=== PATIENT | male | born 1995 | race African-American/Black ===

== ENCOUNTER → 2018-05-17 | Outpatient (REF) | payer OTHER ==
[2018-05-17 21:51] LABS: CHLAMYDIA DNA AMPLIFICATION NEGATIVE (NEGATIVE); GC DNA AMPLIFICATION NEGATIVE (NEGATIVE)
[2018-05-22 00:07] LABS: HSV TYPE I IgM AB <1:10 titer (<1:10); HSV TYPE II IgG SPECIFIC <0.91 index (0.00-0.90); HSV TYPE II IgM ABY <1:10 titer (<1:10)
== END ==
LOC: M SFHCLERA 19:11
DX: Z20.2 Contact with and (suspected) exposure to infections with a predominantly sexual mode of transmission (principal); Z11.3 Encounter for screening for infections with a predominantly sexual mode of transmission
CPT/HCPCS: 86695

== ENCOUNTER 2018-08-28 06:46 | Emergency (ER) | payer OTHER ==
[~2018-08-28] VITALS: Ht 180.3 cm; Wt 78.2 kg
[2018-08-28] MEDS ORDERED: AMPICILLIN SOD/SULBACTAM SOD 3 GM in D5W MINI-BAG PLUS 100 ML IV ONE (07:15)
[2018-08-28] MEDS ORDERED: NS 1,000 ML IV ONE (07:15)
[2018-08-28] MEDS ORDERED: KETOROLAC 30 MG/ML VIAL (J1885) IV ONE (07:15)
[2018-08-28 07:45] LABS: BASO # 0.1 10^3/uL (0.0-0.2); BASO % 0.4 % (0.0-1.0); EOS # 0.1 10^3/uL (0.0-0.50); EOS % 0.9 % (0.0-3.0); LYMPH # 1.8 10^3/uL (1.5-6.5); LYMPH % 15.5 % (24.0-44.0); MEAN CORPUSCULAR HGB CONC 34.8 g/dl (32.0-36.5); MEAN CORPUSCULAR VOLUME 86.1 fl (80.0-96.0); MONO # 0.9 10^3/uL (0.0-0.8); MONO % 7.7 % (0.0-5.0); NEUTROPHILS # 8.8 10^3/uL (1.8-7.7); NEUTROPHILS % 75.1 % (36.0-66.0); PLATELET COUNT, AUTOMATED 251 10^3/uL (150-450); RED BLOOD COUNT 5.34 10^6/uL (4.30-6.10); WHITE BLOOD COUNT 11.7 10^3/uL (4.0-10.0)
[2018-08-28 08:03] LABS: BLOOD UREA NITROGEN 16 MG/DL (7-18); C REACTIVE PROTEIN QUANTITATIV 1.94 MG/DL (0.00-0.30); CALCIUM LEVEL 8.8 MG/DL (8.5-10.1); CARBON DIOXIDE LEVEL 29 MEQ/L (21-32); CHLORIDE LEVEL 102 MEQ/L (98-107); CREATININE FOR GFR 1.12 MG/DL (0.70-1.30); GLOMERULAR FILTRATION RATE > 60.0 (>60); GLUCOSE, FASTING 93 MG/DL (70-100); POTASSIUM SERUM 4.1 MEQ/L (3.5-5.1); SODIUM LEVEL 137 MEQ/L (136-145)
[2018-08-28] MEDS ORDERED: ISOVUE-370 76% 100ML VIAL (Q9967) As Ordered ONE (08:08)
--- NOTE | 2018-08-28 09:06 | REP ---
SOFT-TISSUE NECK CT WITH IV CONTRAST: HISTORY: Pain and swelling in the right side of the neck. CT CONTRAST DOSE: 75 mL of intravenous Isovue 370. CT FINDINGS: Preliminary digital aircraft servicer radiographs are unremarkable. The parotid and submandibular glands are normal and symmetric. Thyroid lobes are homogeneous and normal in size. No vascular abnormality is seen. The visualized paranasal sinuses are clear. No intraorbital abnormality is observed. There is no evidence of tonsillar or peritonsillar abscess. There is shotty bilateral cervical lymphadenopathy. The largest lymph node on the right measures 12 X 14 x 17 mm. The largest lymph node on the left, also an anterior cervical lymph node measures 11 x 17 x 26 mm. There are multiple other smaller anterior and posterior lymph nodes. Two or three submental lymph nodes are seen to be somewhat hypertrophied. There is diffuse subcutaneous edema in the submental region bilaterally. Question cellulitis. No other abnormality. No bony abnormalities seen. The lung apices are clear. No glottic or subglottic airway lesion is appreciated. IMPRESSION: Diffuse cervical lymphadenopathy, mild in degree. Diffuse soft tissue swelling in the floor the mouth and anterior neck subcutaneous soft tissues. No abnormal fluid collection seen. Otherwise negative. Electronically Signed by Giorgio Diaz MD 08/28/2018 10:08 A
[2018-08-28] MEDS ORDERED: dexameTHASONE 20 MG/5 ML VIAL (J1100) IV ONE (10:45)
[2018-08-28] MEDS ORDERED: IBUP-1022 PO (11:05)
[2018-08-28] MEDS ORDERED: AUGM875T28 PO (11:05)
[2018-08-28 11:07] VITALS: BP 122/67
== END 2018-08-28 11:12 | disposition home or self-care (01) ==
LOC: M ED 06:46
DX: R59.0 Localized enlarged lymph nodes (principal); J02.9 Acute pharyngitis, unspecified; Z87.891 Personal history of nicotine dependence
CPT/HCPCS: 70491; 80048; 85025; 86140; 87880; 96361; 96365; 96375; 99284; J1100; J1885; Q9967

== ENCOUNTER → 2020-07-03 | Outpatient (CLI) | payer SELFPAY ==
[~2020-07-03] MED LIST: AUGM875T28 PO; IBUP-1022 PO
== END ==
LOC: M LABSMTC 13:56
PROVIDERS: ATTEND Pediatrics
DX: Z20.828 Contact with and (suspected) exposure to other viral communicable diseases (principal)

== ENCOUNTER 2020-08-03 07:23 | Inpatient (IN) | payer OTHER ==
[2020-08-03] VITALS (8 sets, daily range): BP systolic 112–136; BP diastolic 66–74
[2020-08-03] MEDS ORDERED: AMMONIA AROMATIC INHALANT STA (07:25)
[2020-08-03] MEDS ORDERED: NS 1,000 ML IV ONE (07:30)
[2020-08-03 08:08] LABS: BASO # 0.1 10^3/uL (0.0-0.2); BASO % 0.3 % (0.0-1.0); EOS % 0.1 % (0.0-3.0); HEMATOCRIT 51.4 % (42.0-52.0); HEMOGLOBIN 16.1 g/dl (13.5-17.5); LYMPH # 3.4 10^3/uL (1.5-5.0); LYMPH % 20.2 % (24.0-44.0); MEAN CORPUSCULAR HEMOGLOBIN 28.2 pg (27.0-33.0); MEAN CORPUSCULAR HGB CONC 31.3 g/dl (32.0-36.5); MONO # 0.7 10^3/uL (0.0-0.8); MONO % 3.9 % (0.0-5.0); NEUTROPHILS # 12.3 10^3/uL (1.5-8.5); NEUTROPHILS % 72.4 % (36.0-66.0); PLATELET COUNT, AUTOMATED 274 10^3/uL (150-450); RED BLOOD COUNT 5.71 10^6/uL (4.30-6.10); WHITE BLOOD COUNT 16.9 10^3/uL (4.0-10.0)
[2020-08-03] MEDS ORDERED: cefTRIAXone SOD 2 GM in D5W MINI-BAG PLUS 50 ML IV ONE (08:15)
--- NOTE | 2020-08-03 08:18 | REP ---
INDICATION: Altered Mental Status COMPARISON: None. TECHNIQUE: Portable AP view of the chest FINDINGS: Asymmetric left-sided airspace disease suggesting pneumonia and correlation is recommended. No effusion. Right hemithorax is clear. Mediastinum and cardiac silhouette are within normal limits for portable technique. IMPRESSION: Hazy right-sided opacity suggesting pneumonia. Correlation is required along with follow-up. <Electronically signed by Collin Davalos > 08/03/20 0849
[2020-08-03] MEDS ORDERED: ESCI20TA PO (08:22)
[2020-08-03] MEDS: ALBUTEROL 90 MCG/ACT 8GM HFA INHALER INH SCH ×3 (08:30→09:10)
[2020-08-03] MEDS ORDERED: methylPREDNISolone 125MG 2ML VIAL IV ONE (08:30)
[2020-08-03 08:50] LABS: AMPHETAMINES LEVEL URINE NEGATIVE (NEGATIVE); BARBITURATES URINE NEGATIVE (NEGATIVE); BENZODIAZEPINES URINE NEGATIVE (NEGATIVE); CANNABINOIDS URINE NEGATIVE (NEGATIVE); COCAINE METABOLITE URINE NEGATIVE (NEGATIVE); METHADONE URINE NEGATIVE (NEGATIVE); OPIATES URINE NEGATIVE (NEGATIVE); PHENCYCLIDINE URINE NEGATIVE (NEGATIVE)
--- NOTE | 2020-08-03 09:07 | REP ---
INDICATION: Altered Mental Status. COMPARISON: None. TECHNIQUE: Helical scanning is acquired. 5 mm axial images were reformatted. Coronal MPR images were generated. FINDINGS: Bone window settings demonstrate an intact bony calvarium. There is no evidence of skull fracture or incidental bony calvarial lesion. The visualized paranasal sinuses appear clear. No intraorbital abnormality is seen. On soft tissue window setting images; the lateral, third, and fourth ventricles are normal in size and position. Adams-white differentiation pattern is normal above and below the tentorium. There are is no evidence of intracranial hemorrhage. No mass, edema, infarction, or midline shift is seen. No extra-axial fluid collection is appreciated. IMPRESSION: Negative noncontrast head CT. <Electronically signed by Pierce Diaz > 08/03/20 0903
[2020-08-03 09:08] LABS: ACETAMINOPHEN LEVEL < 2.0 UG/ML (10.0-30.0); ALT/SGPT 46 U/L (12-78); BILIRUBIN,DIRECT < 0.1 MG/DL (0.0-0.2); BILIRUBIN,TOTAL 0.1 MG/DL (0.2-1.0); ETHYL ALCOHOL (ETHANOL) < 0.003 % (0.000-0.010); SALICYLATE LEVEL < 1.7 MG/DL (5.0-30.0); THYROID STIMULATING HORMONE 0.758 uIU/ML (0.358-3.740); TOTAL PROTEIN 7.9 GM/DL (6.4-8.2)
[2020-08-03 09:10] LABS: RSV AMPLIFICATION NEGATIVE (NEGATIVE)
[2020-08-03] MEDS ORDERED: ONDANSETRON 4MG/2ML VIAL IV ONE (09:15)
[2020-08-03] MEDS ORDERED: NS 1,930 ML in IV 1 EA IV ONE (09:15)
[2020-08-03 09:25] LABS: BLOOD UREA NITROGEN 32 MG/DL (7-18); CALCIUM LEVEL 8.7 MG/DL (8.5-10.1); CARBON DIOXIDE LEVEL 26 MEQ/L (21-32); CHLORIDE LEVEL 107 MEQ/L (98-107); CREATININE FOR GFR 2.17 MG/DL (0.70-1.30); GLOMERULAR FILTRATION RATE 47.3 (>60); GLUCOSE, FASTING 37 MG/DL (70-100); POTASSIUM SERUM 3.7 MEQ/L (3.5-5.1); SODIUM LEVEL 143 MEQ/L (136-145)
[2020-08-03] MEDS ORDERED: DEXTROSE 50% 50 ML SYRINGE IV STA (09:32)
[2020-08-03] MEDS ORDERED: DEXTROSE 50% 50 ML SYRINGE As Ordered ONE (09:33)
[2020-08-03 11:44] LABS: RSV AMPLIFICATION NEGATIVE (NEGATIVE)
--- NOTE | 2020-08-03 12:34 | HPE ---
HISTORY AND PHYSICAL DATE OF ADMISSION: 08/03/2020 PRIMARY CARE PROVIDER: [facility] CHIEF COMPLAINT: Acute respiratory failure secondary to presumed aspiration pneumonia. HISTORY OF PRESENT ILLNESS: Ibrahima Kirkpatrick is a 25 year old. He has no significant past medical history. He presented to the emergency room obtunded, hypothermic, hypoglycemic, and hypoxic. His said that she found him in a bathtub, called a friend of his to come over, and then they called the ambulance. Confidential discussions with his , Yeny Kirkpatrick ([phone]), she is concerned that this is related to a drug overdose. She said that when she found him unresponsive, he had been googling symptoms of "oxy side effects," and that the friend said that they had been taking a Percocet derivative (suspected synthetic opiate use). PAST MEDICAL HISTORY: The past medical history looks to be benign. He has a prescription for Celexa in the system. I am not sure if he is still taking that. ALLERGIES: None known. SOCIAL HISTORY: , has a child. 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 No smoking. REVIEW OF SYSTEMS: Not obtainable. PHYSICAL EXAMINATION: VITAL SIGNS: 170/91, pulse 110, respiratory rate 20, 02 saturation 98% on 80%. He has BiPAP mask on. GENERAL APPEARANCE: He is alert. He follows commands. BiPAP mask is on. NECK: Supple. LUNGS: Decreased breath sounds, scattered rhonchi. HEART: Regular rhythm without murmur. ABDOMEN: Soft and nontender with no masses. EXTREMITIES: No clubbing, cyanosis, or edema. Moves arms and legs with equal strength. LABORATORY: On admission, his blood sugar was 37, sodium 143, potassium 3.7, BUN 32, creatinine 2.1, lactic acid 3.9, ammonia 33. TSH normal. White count 69, hemoglobin 61, platelets 274. Toxicology screen was negative. Initial COVID screen and flu screen were negative. Repeat blood sugar was 119 and an hour later it was 106; this is after an ampule of D50. IMPRESSION: 1. Suspected aspiration pneumonia. Per nursing staff, the patient was covered with vomitus upon arrival and was obtunded. He is being admitted to the ICU. He is on BiPAP support. Dr. Purcell has seen him in the emergency room. I appreciate her help. He will be treated with Zosyn and doxycycline. I have also ordered some IV Protonix and DVT prophylaxis with Lovenox. 2. Hypoxic respiratory failure. He is currently on BiPAP. Nebulized bronchodilator has been ordered. 3. Hypoglycemia. Etiology is unknown. It has come up after some D50. I have ordered hourly fingerstick blood sugars. He will be on D5 normal saline. Followup lactic acid level has been ordered. 4. Suspected synthetic opioid overdose. Supportive care, observe for withdrawal. 5. Acute kidney injury. Renal function is elevated. He has received fluids. I have ordered a BMP for early this afternoon and later this evening. 6. Elevated troponin. Serial troponins have been ordered.
[2020-08-03] MEDS: DOXYCYCLINE HYCLATE 100 MG in D5W MINI-BAG PLUS 100 ML IV SCH (14:25)
[2020-08-03 14:27] LABS: BLOOD UREA NITROGEN 29 MG/DL (7-18); CALCIUM LEVEL 8.2 MG/DL (8.5-10.1); CARBON DIOXIDE LEVEL 26 MEQ/L (21-32); CHLORIDE LEVEL 110 MEQ/L (98-107); CREATININE FOR GFR 1.53 MG/DL (0.70-1.30); GLOMERULAR FILTRATION RATE > 60.0 (>60); GLUCOSE, FASTING 130 MG/DL (70-100); POTASSIUM SERUM 4.9 MEQ/L (3.5-5.1); SODIUM LEVEL 138 MEQ/L (136-145)
[2020-08-03] MEDS: PIPERACILLIN/TAZOBACTAM SOD 4.5 GM in D5W MINI-BAG PLUS 50 ML IV SCH ×2 (15:41→19:51)
[2020-08-03] MEDS: D5W/0.9% SODIUM CHLORIDE 1,000 ML IV SCH ×2 (16:29→19:51)
[2020-08-03] MEDS: PANTOPRAZOLE 40MG VIAL (C9113 PER 1) IV SCH (16:30)
[2020-08-03] MEDS: ENOXAPARIN 40MG/0.4ML SYRINGE (J1650 PER 10MG) SC SCH (16:30)
[2020-08-03 17:09] LABS: ABG BASE EXCESS -7.3 (-2.0-2.0); ABG HCO3 20.3 MEQ/L (22.0-26.0); ABG O2 SATURATION 98.9 % (95.0-99.0); ABG PARTIAL PRESSURE CO2 48.8 mmHg (35.0-45.0); ABG PARTIAL PRESSURE O2 144.8 mmHg (75.0-100.0); ABG STANDARD HCO3 18.7 MEQ/L (22.0-26.0); ABG TOTAL CO2 21.8 MEQ/L (22.0-29.0)
[2020-08-03 17:11] LABS: ABG pH (ARTERIAL) 7.238 UNITS (7.350-7.450)
[2020-08-03 17:56] LABS: CK-MB VALUE MASS 32.5 NG/ML (<3.6); MB/CK RELATIVE INDEX 11.44 (< OR =4); TROPONIN I 3.31 NG/ML (< 0.10)
--- NOTE | 2020-08-03 18:36 | IPN ---
PROGRESS NOTE DATE: 08/03/2020 Ibrahima had a repeat troponin, initial troponin was 0.6, and repeat troponin was 3.3. He has had no arrhythmias. His oxygenation is adequate currently 98% on BiPAP. The case was discussed with Dr. Bach who is net developer consultant for cardiology. He will see the patient in consultation.
[2020-08-03] MEDS ORDERED: ASPIRIN 81 MG ENTERIC TAB PO ONE (18:45)
[2020-08-03 20:46] LABS: BLOOD UREA NITROGEN 22 MG/DL (7-18); CALCIUM LEVEL 8.6 MG/DL (8.5-10.1); CARBON DIOXIDE LEVEL 26 MEQ/L (21-32); CHLORIDE LEVEL 112 MEQ/L (98-107); CREATININE FOR GFR 1.54 MG/DL (0.70-1.30); GLOMERULAR FILTRATION RATE > 60.0 (>60); GLUCOSE, FASTING 123 MG/DL (70-100); POTASSIUM SERUM 5.1 MEQ/L (3.5-5.1); SODIUM LEVEL 141 MEQ/L (136-145)
--- NOTE | 2020-08-03 23:32 | CR ---
CRITICAL CARE CONSULTATION DATE: 08/03/2020 REASON FOR CONSULTATION: Evaluation of altered mental status. CHIEF COMPLAINT: Altered mental status. HISTORY OF PRESENT ILLNESS: Mr. Kirkpatrick is a 25-year-old male with no reported prior past medical history. He is somewhat lethargic and the history was obtained from the chart and from other collateral information. The patient had presented to the Emergency Department with altered mental status. His had found the patient earlier this morning in the bathtub where he was found to be significantly obtunded. The patient himself does not recall the events leading to his arrival to the Emergency Department. The patient himself denies any drug ingestion, illicit or prescription. His however had expressed concern that he may have had a potential drug overdose. She states that when she had found him unresponsive, he had been Googling symptoms of Oxy side effects and the patient's friend had admitted that they took a Percocet derivative or suspected synthetic opioid. The patient currently is on BIPAP. Initially upon EMS arrival, the patient was noted to have dried vomitus with small pinpoint pupils and bradypnea with a respiratory rate of 12 breaths per minute. His fingerstick glucose by EMS was reported to be 80. He was given supplemental oxygen. In the Emergency Department the patient was given Solu-Medrol as well as IV fluid bolus of 30 mL per kg. He was placed initially on a non-rebreather. The patient was also given antibiotics with Ceftriaxone. His glucose on chemistry was 37 and he was given an above amp of d50 in the Emergency Department. The patient's mental status was improving on the non-rebreather. He was arousable to verbal stimuli and answering questions appropriately. His arterial blood gases had showed evidence of respiratory acidosis, and he was placed on a BIPAP in the Emergency Department which he was tolerating. On the BIPAP the patient denies any complaints currently. He denies any chest pain. No shortness of breath, no coughing. He denies any nausea or vomiting and states he was in his usual health leading up to his presentation. PAST MEDICAL HISTORY: Depression PAST SURGICAL HISTORY: None reported. MEDICATIONS: Previous prescription for Celexa. The patient did have with him a bottle of lexapro as well as Wellbutrin which is his 's prescription. ALLERGIES: None. 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 He is and lives with his and his child. He denies a previous history of smoking and denies any alcohol use or other drug use, however possible synthetic opioid use per patient's family. FAMILY HISTORY: The patient's family history is unable to be obtained. HOME MEDICATIONS: None. PHYSICAL EXAMINATION: VITAL SIGNS: Temperature 96.5, pulse 99, blood pressure 144/77, O2 sat 100% on BIPAP. INTAKE AND OUTPUT: In 3.1 liters, out 1.5 liters. GENERAL APPEARANCE: The patient is sitting in bed on the BIPAP, does not appear to be in any respiratory distress. He is arousable to verbal stimuli and is answering questions appropriately, but he is mildly somnolent. HEENT: Normocephalic and atraumatic. Pupils are small but reactive to light bilaterally. NECK: Supple. Trachea is midline. There is no palpable cervical adenopathy, no jugular venous distention. CARDIAC: Regular rate and rhythm. Normal S1, S2, no murmurs appreciated. PULMONARY: Diminished breath sounds on the left with few crackles and rhonchi. ABDOMEN: Soft, nontender, nondistended. No palpable organomegaly. EXTREMITIES: No lower extremity edema bilaterally. LABORATORY DATA: WBC 16.9, hemoglobin 16.1, platelet count 274. Chemistries: Sodium 143, potassium 3.7, chloride is 107, bicarbonate is 26, BUN 32, creatinine is 2.17, glucose is 37, calcium is 8.7, AST 47, ALT 46, alkaline phosphatase 58, ammonia level is 33, albumin is 4.0. TSH 0.758. Arterial blood gases initially pH 7.226, pco2 of 54.3, pO2 of 52. Troponin initially 0.69, INR is 1.5. Toxic screen negative. Salicylate and Acetaminophen level negative. ETOH level negative. The patient is SARS-CoV-2 negative x2. IMAGING DATA: Head CT shows no acute focal findings. Chest x-ray on admission shows a hazy opacity on the left side with some suggestion of mild air bronchograms. ASSESSMENT AND PLAN: Mr. Kirkpatrick is a 25-year-old male with no reported medical history who presented with altered mental status. There is also a suspicion of aspiration from a vomiting event and the patient did have leukocytosis on admission with opacity on imaging in the left side of the lung. The patient also appeared to have some degree of respiratory depression as well as acute respiratory acidosis. His mental status did improve while he was in the Emergency Department and the patient was able to be placed on BIPAP, as he was protecting his airway. On the BIPAP the patient did need adjustments of his settings as he did not appear to be over breathing the set rate. Mental status-castellano, however he does continue to improve and while the patient denies a history of drug use, the patient's is concerned that he may have taken a synthetic opioid. - We will continue the patient on BIPAP. His settings were adjusted to 16/8 with a respiratory rate of 18 and we will continue to wean down is his FiO2 as tolerated to maintain an 02 sat of 88-92%. We will follow up his repeat arterial blood gases this evening and would increase his respiratory rate if needed. - We will continue the patient with antibiotics. He is on Zosyn, given concern for aspiration as well as Doxycycline. Would trend procalcitonin to aid in deescalation of his antibiotics. If he is improving clinically, he could likely deescalate from IV to p.o. antibiotic such as Augmentin. - The patient did have elevated lactic acidosis on admission which improved with IV fluids. Would hold off on further IV fluids but can give boluses as needed. His CPK was not elevated. - The patient denies previous pulmonary history. He does not have any wheezing on exam, and his COVID test was negative. Would hold off on steroids for now. - The patient did have some mildly elevated troponins. His repeat troponins are pending and will be continuing to be trended. The patient will have an echocardiogram ordered and Cardiology was consulted. - We will continue to discuss with the patient about possible ingestion. The patient does not appear to have any suicidal tendencies or ideation as per his or the patient currently. DVT PROPHYLAXIS: Lovenox. CODE STATUS: Full code. Total critical care time spent not including procedures approximately one hour and 30 minutes. MTDD
--- NOTE | 2020-08-03 23:55 | ECGEPIP ---
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 Heart rate was 98 bpm Electronically Signed on 08-03-2020 23:55:47 EST by Anish Myers
[2020-08-04] VITALS (17 sets, daily range): BP systolic 101–133; BP diastolic 57–78; O2SAT 98–100
[2020-08-04 00:52] LABS: CK-MB VALUE MASS 29.2 NG/ML (<3.6); MB/CK RELATIVE INDEX 8.61 (< OR =4); TROPONIN I 1.86 NG/ML (< 0.10)
[2020-08-04] MEDS: PIPERACILLIN/TAZOBACTAM SOD 4.5 GM in D5W MINI-BAG PLUS 50 ML IV SCH ×4 (01:41→20:24)
[2020-08-04 05:37] LABS: ABG BASE EXCESS -1.9 (-2.0-2.0); ABG HCO3 24.8 MEQ/L (22.0-26.0); ABG O2 SATURATION 98.9 % (95.0-99.0); ABG PARTIAL PRESSURE CO2 50.1 mmHg (35.0-45.0); ABG PARTIAL PRESSURE O2 136.8 mmHg (75.0-100.0); ABG STANDARD HCO3 22.9 MEQ/L (22.0-26.0); ABG TOTAL CO2 26.4 MEQ/L (22.0-29.0); ABG pH (ARTERIAL) 7.313 UNITS (7.350-7.450)
[2020-08-04 06:04] LABS: HEMATOCRIT 40.6 % (42.0-52.0); MEAN CORPUSCULAR HEMOGLOBIN 28.6 pg (27.0-33.0); MEAN CORPUSCULAR HGB CONC 32.8 g/dl (32.0-36.5); MEAN CORPUSCULAR VOLUME 87.3 fl (80.0-96.0); PLATELET COUNT, AUTOMATED 194 10^3/uL (150-450); RED BLOOD COUNT 4.65 10^6/uL (4.30-6.10); WHITE BLOOD COUNT 19.1 10^3/uL (4.0-10.0)
[2020-08-04 06:07] LABS: HEMOGLOBIN 13.3 g/dl (13.5-17.5)
--- NOTE | 2020-08-04 06:07 | ECGEPIP ---
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
--- NOTE | 2020-08-04 07:00 | CR ---
CONSULTATION DATE: 08/03/2020 REFERRING PHYSICIAN: Dr. Krystian Crawford REASON FOR CONSULTATION: NSTEMI acute myocardial infarction. HISTORY OF PRESENT ILLNESS: Mr. Ibrahima Kirkpatrick is a previously generally healthy, 25-year-old black man with no previously known heart disease who was brought to [facility] this morning in an obtunded state, hypothermic, hypoxemic and hypoxic. His had discovered him in the bathtub unresponsive. The admission history and physical examination indicates there was some concern over a possibility of drug overdose. The patient denies any chest pain, pressure, tightness, squeezing, heaviness with or without exertion. Prior to this admission, he was not having any exertional dyspnea. No orthopnea or PND. No leg or ankle swelling. No palpitations. No intermittent claudication. No embolic events. No known adverse drug reactions. MEDICATIONS PRIOR TO ADMISSION: Celexa 20 mg daily. CURRENT MEDICATIONS IN HOSPITAL: D5 normal saline at 200 mL per hour IV, doxycycline 100 mg IV q.12h., Lovenox 40 mg subcu daily, Protonix 40 mg IV q.24 hours, piperacillin/tazobactam 4.5 gm IV q.6h. PAST MEDICAL HISTORY: Overweight. No systemic hypertension. PAST SURGICAL HISTORY: Left shoulder repair. SOCIAL HISTORY: . Moderate alcohol intake. Uses electronic cigarettes (vape). 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 REVIEW OF SYSTEMS: Depression. Prior to admission, he was not having any exertional dyspnea. Currently he is not having any dyspnea on the BiPAP machine at rest. No leg or ankle swelling. All other 10-point review of systems negative. PHYSICAL EXAMINATION: Temperature 97.7, pulse 74 (regular), respiratory rate 19, BP 116/67, pulse ox 99% on BiPAP at FiO2 of 40%. BP 116/67. Oral mucosa was moist without pallor or cyanosis. Jugular venous pulsations were at 4 cm. Trachea midline. No palpable thyroid. No clubbing of the nail beds, cyanosis or splinter hemorrhages. No skin lesions, skin pallor, or icterus. Oriented to person, place and time. Mood and affect normal. Curvature of the spine normal. Gait not appropriate to test at this time as the patient is on bedside on BiPAP. Gross motor strength and tone appear normal. No abnormal muscle atrophy, fasciculations or tremors. Respiratory expansion on BiPAP was good. No crackles or wheezes. No palpable apex beat. No parasternal lifts, heaves, thrills, or palpable heart sounds. First and second heart sounds were normal. No S3, S4 or murmurs. Carotids normal in volume and contour, without bruits. No palpable abdominal aorta. No abdominal bruits. Femoral pulses normal. Pedal pulses normal. No peripheral edema. No varicose veins. Abdomen was obese, soft, nontender, with normal bowel sounds. No hepatosplenomegaly or other organomegaly. Liver span difficult to assess due to abdominal obesity. Stool for occult blood not presently indicated. Electrocardiogram 08/03/2020 at 0830 hours shows sinus rhythm, 98 BPM, subtle, nonspecific ST-T abnormalities. Electrocardiogram 08/03/2020 at 1815 hours shows sinus rhythm, 70 BPM, normal ECG. Portable AP chest x-ray 08/03/2020 reported hazy right-sided opacity suggesting pneumonia. Asymmetric left-sided air space disease suggesting pneumonia. Right hemithorax clear. Mediastinum and cardiac within normal limits per portable technique. Laboratory work 08/03/2020 shows WBC 16.9, hemoglobin 16.1, platelets 274. Laboratory work 08/03/2020 at 0729 hours shows sodium of 143, potassium 3.7, chloride 107, CO2 26, BUN 32, creatinine 2.17, estimated GFR 47.3, glucose 37, ammonia 33, TSH 0.758, albumin 4.0, total protein 7.9, lactic acid 3.9. Laboratory 08/03/2020 at 1631 hours shows CP-MB 32.5 (11.44%), total CPK 284, troponin I 3.31. ASSESSMENT AND RECOMMENDATIONS: 1. NSTEMI acute myocardial infarction. This patient has had a type 2 NSTEMI as a consequence of hypoxemia. It is highly unlikely that this patient's myocardial infarct would be a consequence of ischemic heart disease from atherosclerotic narrowing. Agree with serial cardiac enzymes. Agree with supportive care. My plan will be for the patient to have an outpatient exercise stress test sometime as an outpatient after he has recovered from his hospital stay illnesses. 2. Elevated troponin I. I believe this patient's elevated troponin is due to hypoxemia. His echocardiogram Doppler showed normal LV systolic function, normal LV diastolic function and normal regional LV wall motion and wall thickening. As noted above, the plan will be for an outpatient Moe protocol exercise stress test. 3. Abnormal ECG. His first ECG here at [facility] early this morning showed very subtle nonspecific ST-T abnormalities. Repeat ECG later on in the day showed electrocardiogram to be normal. As noted above, he will undergo a Moe protocol exercise stress test sometime after discharge. Krystian Crawford M.D. Agnes Purcell M.D.
[2020-08-04 07:04] LABS: BLOOD UREA NITROGEN 17 MG/DL (7-18); CALCIUM LEVEL 8.5 MG/DL (8.5-10.1); CARBON DIOXIDE LEVEL 25 MEQ/L (21-32); CHLORIDE LEVEL 110 MEQ/L (98-107); GLOMERULAR FILTRATION RATE > 60.0 (>60); GLUCOSE, FASTING 105 MG/DL (70-100); POTASSIUM SERUM 4.4 MEQ/L (3.5-5.1); SODIUM LEVEL 140 MEQ/L (136-145)
--- NOTE | 2020-08-04 07:50 | ECHO ---
DATE OF PROCEDURE: 08/03/2020 Age: 25 Gender: Male Height: 68 inches Weight: 225 pounds REFERRING PHYSICIAN: Agnes Purcell MD INDICATION: Elevated troponin, Non-ST elevation myocardial infarction (NSTEMI). MEASUREMENTS: 2D Measurements: Aortic root 2.8 cm Proximal ascending aorta 2.4 cm Left atrium 3.0 cm Intraventricular septum 1.10 cm Posterior wall 1.07 cm Left ventricle diastole 4.1 cm Left ventricle systole 2.8 cm Right ventricle 4.3 cm Inferior vena cava 2.1 cm Doppler Measurements: No aortic stenosis No aortic regurgitation Very mild mitral regurgitation Very mild tricuspid regurgitation No pulmonic regurgitation Aortic valve velocity 119 cm/s LVOT velocity 97.8 cm/s LVOT VTI 18.6 cm Mitral E velocity 85.4 cm/s Mitral A velocity 56.3 cm/s Mitral deceleration time 222 msec Estimated right ventricular systolic pressure 28-31 mmHg Estimated right atrial pressure 5-10 mmHg Pulmonary artery systolic pressure 33 mmHg by pulmonary acceleration time method. MITRAL ANNULAR TISSUE DOPPLER E prime septal 9.0 cm/s, E prime lateral 11.6 cm/s DESCRIPTION: Rhythm was sinus. Image quality was adequate. This was a 2D, M- mode, color flow Doppler, and pulsed wave Doppler examination including mitral annular tissue Doppler. CONCLUSIONS: 1. Normal left ventricle internal dimensions and wall thickness. Normal regional LV wall motion and wall thickening. Normal LV systolic function. No regional wall motion abnormalities of the left ventricle. Normal LV diastolic function. 2. Normal right ventricle size and systolic function. Suggestive of slight elevation of pulmonary artery systolic pressure versus estimated right ventricle systolic pressure to be near the upper limits of normal to slightly elevated. Normal right ventricle size and systolic function. 3. No pericardial effusion. 4. Otherwise normal appearing echocardiogram Doppler findings. Results of this study were verbally communicated by telephone to Dr. Agnes Purcell. [facility]ITAL[facility]
[2020-08-04] MEDS ORDERED: cefTRIAXone SOD 2 GM in D5W MINI-BAG PLUS 50 ML IV SCH (08:00)
[2020-08-04] MEDS: ENOXAPARIN 40MG/0.4ML SYRINGE (J1650 PER 10MG) SC SCH (08:03)
[2020-08-04] MEDS: PANTOPRAZOLE 40MG VIAL (C9113 PER 1) IV SCH (08:03)
[2020-08-04 08:50] LABS: CK-MB VALUE MASS 21.6 NG/ML (<3.6); MB/CK RELATIVE INDEX 7.85 (< OR =4); TROPONIN I 1.16 NG/ML (< 0.10)
[2020-08-04] MEDS ORDERED: methylPREDNISolone 125MG 2ML VIAL IV SCH (09:00)
--- NOTE | 2020-08-04 10:20 | IPN ---
PROGRESS NOTE DATE: 08/04/2020 SUBJECTIVE: Ibrahima is seen in the PCU/ICU, admitted with respiratory failure from aspiration pneumonia, suspected synthetic opiate overdose. He has acute kidney injury and suffered a non-ST segment elevation myocardial infarction type 2 from his hypoxemia. His echocardiogram showed normal wall motion, normal ejection fraction. His abnormal EKG on admission has returned to normal. He has been having intermittent problems with his hypoxemia. Dr. Purcell from the Pulmonary service has been managing his BiPAP. Appreciate her help. He is on Zosyn and doxycycline for aspiration pneumonia. He had lactic acidemia on admission which has improved with hydration. Today he feels better. He says he is not as short of breath but says overall he is improved. No chest pain or palpitations. He is coughing. PHYSICAL EXAMINATION: VITAL SIGNS: Blood pressure 117/78, pulse 53, respiratory rate 22, 100% O2 saturation. GENERAL APPEARANCE: Alert and follows commands. Conversant under his BiPAP mask. HEENT: Unremarkable. LUNGS: Clear. HEART: Regular rate and rhythm without murmur. CHEST: Left chest wall tender to palpate. ABDOMEN: Soft, nontender. No masses. EXTREMITIES: Trace peripheral edema. LABS: Creatinine is down to 1.5. Potassium is normal. White count 19.1. He received IV Solu-Medrol times one dose yesterday. Hemoglobin 13.3, platelets 194. ABG this morning 7.31/50/136. IMPRESSION AND PLAN: 1. Acute respiratory failure from presumed aspiration pneumonia requiring BiPAP support. Continue his Zosyn and doxycycline. If procalcitonin levels are falling, we can probably stop the doxycycline and eventually switch him from Zosyn over to Augmentin. Continue his BiPAP. 2. Hypoglycemia. Etiology is unknown, probably related to the overdose. His blood sugars are improved. I think we can stop the intravenous dextrose. 3. Type 2 non-ST elevation myocardial infarction. Outpatient stress test planned. Echocardiogram shows no wall motion abnormalities. Continue his Aspirin daily and DVT prophylaxis with Lovenox. 4. Suspected synthetic opiate overdose. The patient denies this. 's history is consistent with this. This can be addressed as an outpatient. 5. Acute kidney injury. Renal function is improved. I do not know what his baseline is. His renal function is improving on a daily basis. I expect his baseline creatinine would be moderately elevated as he is heavily muscled.
[2020-08-04] MEDS: DOXYCYCLINE HYCLATE 100 MG in D5W MINI-BAG PLUS 100 ML IV SCH ×3 (11:09)
[2020-08-04 13:14] LABS: ABG BASE EXCESS -1.5 (-2.0-2.0); ABG HCO3 24.2 MEQ/L (22.0-26.0); ABG O2 SATURATION 95.7 % (95.0-99.0); ABG PARTIAL PRESSURE CO2 44.4 mmHg (35.0-45.0); ABG PARTIAL PRESSURE O2 78.7 mmHg (75.0-100.0); ABG STANDARD HCO3 23.2 MEQ/L (22.0-26.0); ABG TOTAL CO2 25.5 MEQ/L (22.0-29.0); ABG pH (ARTERIAL) 7.354 UNITS (7.350-7.450)
--- NOTE | 2020-08-04 16:00 | CCN ---
CRITICAL CARE NOTE DATE: 08/04/2020 Patient was seen and examined this morning during bedside rounds. Patient is awake and alert, answering questions appropriately, and appears comfortable on the BiPAP. On questioning patient states the last thing he remembers yesterday was going to take a bath and being on his phone in the bath. He then does not recall what happened afterward. When asked again about his medications, patient states he does take an antidepressant, Lexapro, daily, but he denies taking any other medications prescribed or otherwise. He also denies any other drug, intoxication, or drug use. This morning he denies any chest pain except occasional sharp twinges on the left side of his chest. He denies any significant coughing or mucus production and no shortness of breath or dyspnea. He has no abdominal pain. No nausea or vomiting. PHYSICAL EXAMINATION: VITAL SIGNS: Temperature 96.9, pulse 63, respirations 22, blood pressure 117/78, oxygen saturation 100% on BiPAP at 30% FiO2. Intake 3.8 liters, out 2.6 liters, net positive 1.1 liters. GENERAL: Patient is sitting in bed. Appears awake and alert and is in no respiratory distress. He is not using any accessory muscles for respiration. HEENT: Normocephalic, atraumatic. Pupils are reactive to light bilaterally. NECK: Supple. Trachea is midline. There is no palpable cervical lymphadenopathy and no jugular venous distention (JVD). CARDIAC: Regular rate and rhythm. Normal S1, S2. No murmurs appreciated. PULMONARY: Diminished breath sounds on the left with a few inspiratory squeaks and crackles. There is no significant wheezing noted. ABDOMEN: Soft, nontender, nondistended. No palpable organomegaly. EXTREMITIES: No lower extremity edema bilaterally. Patient is moving all four extremities. LABORATORY DATA: WBC 19.1, hemoglobin 13.3, platelets 194. Chemistry: Sodium is 140, potassium 4.4, chloride 110, bicarbonate 25, BUN 17, creatinine 1.50, glucose 105, calcium 8.5. Troponin trending down to 1.86. CPK is 339. ABG this morning: A pH of 7.313, pCO2 of 50.1, pO2 of 136.8. ASSESSMENT AND PLAN: Mr. Kirkpatrick is a 25-year-old male with a history of depression, who presented with complaints of altered mental status. Patient was found in his home lethargic with evidence of vomitus and likely aspiration event. Patient had acute hypercapnic respiratory failure requiring BiPAP in the setting of his altered mental status and lethargy. There was suspicion of a possible synthetic opioid use, although patient denies. He also had evidence of leukocytosis and likely aspiration pneumonia on the left side on admission. - Patient's mental status has improving. He appears to be at his baseline now. His arterial blood gas (ABG) on BiPAP also appears improved. He is currently on settings of 16/8 with a respiratory rate of 20 and an FiO2 of 30%. Would take patient off the BiPAP and repeat an ABG in 3-4 hours. If his repeat ABG is stable or improved, would discontinue BiPAP and repeat ABG in the morning. - Patient will be continued on antibiotics with Zosyn and doxycycline. Would trend procalcitonin and can likely de-escalate antibiotics if improving to an oral antibiotic, such as Augmentin, to complete a 10-day course for his aspiration pneumonia. - Patient denies history of drug use, and he denies any suicidal ideation or intentional overdose or ingestion. This can be followed up as an outpatient, as his mental status appears at baseline. - Continue with nasal cannula oxygen supplementation and wean off as tolerated to maintain oxygen saturation above 90%. Deep venous thrombosis (DVT) prophylaxis with Lovenox. Code status. Full code. TOTAL CRITICAL CARE TIME SPENT, NOT INCLUDING PROCEDURES: Approximately 30 minutes. Please do not hesitate to call if any further questions or concerns. MTDD
[2020-08-05] MEDS: PIPERACILLIN/TAZOBACTAM SOD 4.5 GM in D5W MINI-BAG PLUS 50 ML IV SCH ×3 (02:19→14:28)
[2020-08-05 05:41] LABS: ABG pH (ARTERIAL) 7.429 UNITS (7.350-7.450)
[2020-08-05 05:42] LABS: ABG BASE EXCESS -0.8 (-2.0-2.0); ABG O2 SATURATION 94.1 % (95.0-99.0); ABG PARTIAL PRESSURE CO2 35.5 mmHg (35.0-45.0); ABG PARTIAL PRESSURE O2 68.4 mmHg (75.0-100.0); ABG STANDARD HCO3 23.7 MEQ/L (22.0-26.0); ABG TOTAL CO2 24.1 MEQ/L (22.0-29.0)
[2020-08-05 06:00] VITALS: BP 125/79
[2020-08-05 07:18] LABS: HEMATOCRIT 38.7 % (42.0-52.0); MEAN CORPUSCULAR HEMOGLOBIN 29.2 pg (27.0-33.0); MEAN CORPUSCULAR HGB CONC 33.6 g/dl (32.0-36.5); PLATELET COUNT, AUTOMATED 184 10^3/uL (150-450); RED BLOOD COUNT 4.45 10^6/uL (4.30-6.10); WHITE BLOOD COUNT 13.2 10^3/uL (4.0-10.0)
[2020-08-05 07:42] LABS: BLOOD UREA NITROGEN 15 MG/DL (7-18); CALCIUM LEVEL 8.7 MG/DL (8.5-10.1); CARBON DIOXIDE LEVEL 28 MEQ/L (21-32); CHLORIDE LEVEL 108 MEQ/L (98-107); CREATININE FOR GFR 1.48 MG/DL (0.70-1.30); GLOMERULAR FILTRATION RATE > 60.0 (>60); GLUCOSE, FASTING 94 MG/DL (70-100); POTASSIUM SERUM 3.9 MEQ/L (3.5-5.1); SODIUM LEVEL 140 MEQ/L (136-145)
[2020-08-05] MEDS: ENOXAPARIN 40MG/0.4ML SYRINGE (J1650 PER 10MG) SC SCH (08:08)
[2020-08-05] MEDS ORDERED: ECOT81TA5 PO (10:39)
[2020-08-05] MEDS ORDERED: AUGM875T28 PO (10:39)
--- NOTE | 2020-08-05 11:00 | DSES ---
DISCHARGE SUMMARY DATE OF ADMISSION: 08/03/2020 DATE OF DISCHARGE: 08/05/2020 PRINCIPAL DIAGNOSIS: Acute respiratory failure secondary to aspiration pneumonia. SECONDARY DIAGNOSES: 1. Non-ST segment elevation myocardial infarction type 2 secondary to hypoxemia. 2. Acute kidney injury secondary to hypoxemia. 3. Suspected illicit drug overdose. CONSULTS: 1. Dr. Purcell from Pulmonary/Critical Care. 2. Dr. Bach from Cardiology. HISTORY: Patient presented for acute respiratory failure. Found in the bathtub by his . She initially called a friend to help with him, and then when they realized that he was cold and lips were blue, they called the ambulance. has concerns about synthetic drug use, but the patient denies. HOSPITAL COURSE: Patient admitted to ICU bed. He required Bi-PAP respiratory support which was provided and managed by Dr. Purcell. He weaned off that over the course of the first day. He was treated with Zosyn and doxycycline. He will be discharged on Augmentin. He weaned off his oxygen and feels fine today, walking without any shortness of breath, and O2 saturation 96% on room air. He had elevated troponin on admission. It peaked at 3.3. He was seen by Dr. Bach who thought he had a hypoxemia-induced type 2 non-ST segment elevation myocardial infarction. Echocardiogram was performed that showed no segmental wall motion abnormalities. Pulmonary artery pressure was upper limits of normal. He recommended outpatient stress test. We discussed the case today. Feels he does not warrant antiplatelet therapy nor statin therapy due to the nature of the SC. Creatinine was elevated on admission and came down with hydration and treatment of the hypoxemia. I do not know what his baseline creatinine is (he is heavily muscled and so his baseline creatinine is probably elevated). SIGNIFICANT LABS: Today's sodium is 140, potassium 3.9, BUN 15, creatinine 1.5, glucose 94. White count 13, hemoglobin 13, platelets 184. Troponin peaked at 3.3. Toxicology was negative ([facility] toxicology screen does not screen for synthetic opiates). SARS test was negative twice. Chest x-ray showed right-sided infiltrate. DISPOSITION: The patient was discharged home improved and in stable condition. PLAN: He will follow up with Dr. Bach per his office for a nuclear stress test [place] Activity is as tolerated. 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 No added salt, low fat, cholesterol diet advised. MEDICATIONS: 1. Augmentin 875 mg b.i.d. for seven days. 2. Aspirin 81 mg daily. PENDING LABS: At the time of this dictation, there are no pending labs.
[2020-08-05 14:00] VITALS: BP 125/82
== END 2020-08-05 14:45 | disposition home or self-care (01) | DRG 280 ==
LOC: M ED 07:23 → M ED INP 10:25 → M PCU 15:55 → M MS5PR 08-04 21:05
PROVIDERS: ADMIT Family Medicine; ATTEND Family Medicine
DX: I21.4 Non-ST elevation (NSTEMI) myocardial infarction (principal); J69.0 Pneumonitis due to inhalation of food and vomit; J96.01 Acute respiratory failure with hypoxia; N17.9 Acute kidney failure, unspecified; F17.290 Nicotine dependence, other tobacco product, uncomplicated; T40.2X1A Poisoning by other opioids, accidental (unintentional), initial encounter

== ENCOUNTER 2020-09-28 15:17 | Emergency (ER) | payer OTHER ==
[~2020-09-28] VITALS: Ht 172.7 cm; Wt 107.3 kg
[~2020-09-28 15:17] MED LIST changes: +ECOT81TA5 PO; +ESCI20TA16 PO
[2020-09-28] MEDS ORDERED: ONDANSETRON 4MG/2ML VIAL IV ONE ×2 (17:15→21:55)
[2020-09-28] MEDS ORDERED: NS 500 ML IV ONE ×2 (17:15→20:30)
[2020-09-28] MEDS ORDERED: ASPIRIN 81 MG CHEW TABLET PO ONE (17:15)
[2020-09-28 18:26] LABS: BASO # 0.1 10^3/uL (0.0-0.2); BASO % 0.7 % (0.0-1.0); EOS % 0.1 % (0.0-3.0); HEMOGLOBIN 15.5 g/dl (13.5-17.5); LYMPH # 2.4 10^3/uL (1.5-5.0); MEAN CORPUSCULAR HEMOGLOBIN 28.9 pg (27.0-33.0); MEAN CORPUSCULAR VOLUME 87.5 fl (80.0-96.0); MONO # 0.6 10^3/uL (0.0-0.8); MONO % 6.5 % (2.0-8.0); NEUTROPHILS # 5.4 10^3/uL (1.5-8.5); NEUTROPHILS % 64.3 % (36.0-66.0); PLATELET COUNT, AUTOMATED 276 10^3/uL (150-450); RED BLOOD COUNT 5.37 10^6/uL (4.30-6.10); WHITE BLOOD COUNT 8.5 10^3/uL (4.0-10.0)
--- NOTE | 2020-09-28 18:28 | REP ---
INDICATION: CHEST PAIN COMPARISON: 08/03/2020 TECHNIQUE: Portable AP view of the chest FINDINGS: The mediastinum and cardiac silhouette are stable and within normal limits for portable technique. The lung gomez are clear without acute consolidation, effusion, or pneumothorax. Previously noted left-sided infiltrate has resolved. Skeletal structures are intact. IMPRESSION: No acute cardiopulmonary process appreciated. <Electronically signed by Collin Davalos > 09/28/20 [id number]
[2020-09-28 18:47] LABS: ALBUMIN 4.3 GM/DL (3.2-5.2); ALT/SGPT 40 U/L (12-78); BILIRUBIN,DIRECT 0.1 MG/DL (0.0-0.2); BILIRUBIN,TOTAL 0.2 MG/DL (0.2-1.0); BLOOD UREA NITROGEN 17 MG/DL (7-18); CALCIUM LEVEL 9.4 MG/DL (8.5-10.1); CARBON DIOXIDE LEVEL 25 MEQ/L (21-32); CHLORIDE LEVEL 105 MEQ/L (98-107); CK-MB VALUE MASS 3.4 NG/ML (<3.6); CPK CREATINE PHOSPHOKINASE 617 U/L (39-308); CREATININE FOR GFR 1.26 MG/DL (0.70-1.30); GLOMERULAR FILTRATION RATE > 60.0 (>60); GLUCOSE, FASTING 78 MG/DL (70-100); LIPASE 172 U/L (73-393); MB/CK RELATIVE INDEX 0.55 (< OR =4); POTASSIUM SERUM 4.2 MEQ/L (3.5-5.1); SODIUM LEVEL 142 MEQ/L (136-145); TOTAL PROTEIN 8.5 GM/DL (6.4-8.2); TROPONIN I < 0.02 NG/ML (< 0.10)
[2020-09-28 19:01] LABS: RSV AMPLIFICATION NEGATIVE (NEGATIVE)
--- NOTE | 2020-09-28 19:44 | ECGEPIP ---
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
[2020-09-28] MEDS ORDERED: ZOFR4TAB16 PO (21:42)
[2020-09-28] MEDS ORDERED: ONDANSETRON 4 MG TAB PO ONE (21:45)
[2020-09-28 21:52] VITALS: BP 139/85
== END 2020-09-28 22:04 | disposition home or self-care (01) ==
LOC: M ED 15:17
DX: E86.0 Dehydration (principal); R11.2 Nausea with vomiting, unspecified; I25.2 Old myocardial infarction; I10 Essential (primary) hypertension
CPT/HCPCS: 71045; 80048; 80076; 81001; 82550; 82553; 83690; 84484; 85025; 87631; 93005; 96361; 96374; 96376; 99284; J2405